=== PATIENT | female | born 1995 | race Caucasian/White ===

== ENCOUNTER 2024-08-10 07:36 | Inpatient (IN) ==
[2024-08-10] MEDS ORDERED: LIDOCAINE 1% LOCAL 20 ML VIAL INFIL PRN (08:16)
[2024-08-10] MEDS ORDERED: OXYTOCIN 30 UNITS/NSS 30 UNITS/500 ML BAG IV PRN (08:16)
--- NOTE | 2024-08-10 08:44 | History & Physical Report ---
Date of Service August 10, 2024 Assessment & Plan (1) 39 weeks gestation of : (2) Obesity affecting in third trimester: Plan admit for iol, pitocin to start, arom when indicated, epidural on demand, anticipate . Admission and Anticipated Discharge Date Admission Date: August 10, 2024 History of Present Illness Chief Complaint: elective iol Primary Care Provider: Naomie Ayers Patient is a 29yowf with iup at 39 2/7 weeks who present for elective iol. Had been breech in the office and scheduled for c/s today but converted and now desires iol. Notes the bulb fell out at about 6am. Notes some cramping and spotting. passed mucous. good fm and Delivery Plans Obesity (BMI 40 and higher @ beginning of )--47.4 *Growth US @ 32wks--> EFW 85% *Weekly NSTs @ 34wks *BMI 40 or greater offer detailed/level II anatomy at [facility]--done here and wnl *BMI 40 or above offer delivery by [facility]. *BMI 50 or greater scheduled detailed/level II anatomy at [facility] Pt carrier of Polycystic Kidney disease *FOB to be tested - Patent and partner aware and will have testing done when possible with schedule. ---has not been able to do yet Panorama insufficent DNA *pt desires genetic consult--patient setting up---did not do BREECH PRESENTATION------Vertex at 38wks C/S SCHEDULED FOR 08/10/[address] GONZALES AND DR. KO ASSIST OB Labs: Blood Type O Positive 01/07/24 Antibody Screen NEGATIVE 01/07/24 Hgb 11.0 g/dl (12.0-16.0) L 05/25/24 Hct 33.2 % (37.0-47.0) L 05/25/24 MCV 87.7 fL (80.0-100.0) 01/07/24 Plt Count 309 K/uL (130-400) 01/07/24 Rubella IgG Antibody Immune (Immune) 01/07/24 RPR Nonreactive (Nonreactive) 01/07/24 Hep Bs Antigen Negative (Negative) 04/20/24 Hep Bs Antigen NON-REACTIVE (NON-REACTIVE) 01/07/24 Hepatitis C Antibody Negative (Negative) 04/20/24 Hepatitis C Ab (EIA) NON-REACTIVE (NON-REACTIVE) 01/07/24 HIV (1&2) Ag & Ab Conf NON-REACTIVE (NON-REACTIVE) 01/07/24 Glucose 1 Hr 50 gm 129 mg/dl (70-130) 05/25/24 OB Optional Labs: Chlamydia trachomatis RNA Not Detected (NotDetected) 01/07/24 Neisseria gonorrhoeae RNA Not Detected (NotDetected) 01/07/24 Labs Reviewed: Horizon 14-positive PCKD; FOB to be tested--mln cfdna-insufficient dna; genetics consult--mln--never done. akh gbs neg Allergies Allergy/AdvReac Type Severity Reaction Status Date / Time No Known Allergies Allergy Verified 08/09/24 09:51 Home Medications Medication Instructions Recorded Confirmed Type prenat.vits,amol,xmh-tjks-suvyp 1 tab PO HS 12/30/23 08/10/24 History aspirin 81 mg tablet,delayed 81 mg PO HS 07/26/24 08/10/24 History release calcium carbonate (Tums) 300 mg PO QID PRN Acid Reflux 07/26/24 08/10/24 History Patient History Medical History Acid reflux History of COVID-19 12/2023, "mild" Surgical History [place] teeth extracted Family History Mother Hypertension Breast cancer Social History (Updated 08/10/24 @ 07:54 by Sheeba Ramos, JUANY) Smoking Status: Never smoker Second Hand Exposure: No; Do You Dip or Chew Tobacco: No; Hx Alcohol Use: No Hx Substance Use: No Preferred Language: Serbian Communication Ability: Effective 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
[2024-08-10] MEDS: OXYTOCIN 30 UNITS/NSS 30 UNITS/500 ML BAG IV PRN (08:51)
[2024-08-10] MEDS: LACTATED RINGER'S 1,000 ML IV PRN (08:51)
[2024-08-10 09:11] LABS: Hematocrit (blood only) 34.4 % (37.0-47.0); Hemoglobin 11.4 g/dl (12.0-16.0); Mean Corpuscular Hemoglobin 28.7 pg (25.0-34.0); Mean Corpuscular Hgb Conc 33.1 g/dL (32.0-36.0); Mean Corpuscular Volume 86.6 fL (80.0-100.0); Mean Platelet Volume 10.9 fL (9.4-12.4); Platelet Count 267 K/uL (130-400); RDW Coefficient of Variation 13.3 % (11.5-14.5); RDW Standard Deviation 41.9 fL (36.4-46.3); Red Blood Count 3.97 M/uL (4.20-5.40); White Blood Count 12.88 K/ul (4.8-10.8)
--- NOTE | 2024-08-10 16:52 | Anesthesiology Consultation ---
Date of Service August 10, 2024 Assessment & Plan Chart Review Chart Review: Patient NOT seen in Pre Admission Testing and Acceptable Risk for Labor Epidural Consults Requested none ASA ASA3 Proposed Anesthesia Anesthesia Type: Labor Epidural Risk / Benefits Reviewed With: PT / POA / Parent / Guardian, Accepts Plan and Informed Consent Obtained History Height/Weight Height: 5 ft 8 in Weight: 135.624 kg Allergies Allergy/AdvReac Type Severity Reaction Status Date / Time No Known Allergies Allergy Verified 08/09/24 09:51 Medications Home Medications Medication Instructions Recorded Confirmed Last Taken prenat.vits,amol,imy-esdj-xsgie 1 tab PO HS 12/30/23 08/10/24 08/09/24 aspirin 81 mg tablet,delayed 81 mg PO HS 07/26/24 08/10/24 08/09/24 release calcium carbonate (Tums) 300 mg PO QID PRN Acid Reflux 07/26/24 08/10/24 08/09/24 Active Medications Generic Name Dose Route Start Last Admin Trade Name Freq PRN Reason Stop Dose Admin Lactated Ringer's 1,000 mls @ 125 mls/hr 08/10/24 08:16 08/10/24 16:24 Lr IV 08/12/24 08:15 999 mls/hr .Q8H PRN Administration L&D Protocol Protocol Oxytocin 30 units in 500 mls @ 17 mls/hr 08/10/24 08:16 08/10/24 15:20 Pitocin 30 Units/Nss IV 08/12/24 08:15 1.02 units/hr .Q24H PRN 17 mls/hr Labor Induction/Augmentation Titration Protocol 1.02 UNITS/HR NPO Date Last Intake of Fluids: 08/10/24 Time Last Intake of Fluids: 16:00 Date Last Intake of Solids: 08/10/24 Time Last Intake of Solids: 06:30 Past Medical History Medical History Acid reflux History of COVID-19 12/2023, "mild" Exercise / Class Metabolic Activity 1 > 8 Run/Swim/Ski/Tennis Past Family History Family History Mother Hypertension Breast cancer Past Surgical History Surgical History [place] teeth extracted Past Anesthesia History No Hx of Anesthesia Complications and No Family Hx of Anesthesia Complications History of PONV No Hx of PONV and No Hx of Motion Sickness Social History Smoking Status: Never smoker Do You Dip or Chew Tobacco: No Hx Alcohol Use: No Hx Substance Use: No substance use type: does not use Review of Systems ROS Unobtainable: All systems reviewed & are unremarkable except as noted in HPI & below Physical Exam Vital Signs Last Vital Signs Temp 37.1 C 08/10/24 15:20 Pulse 92 H 08/10/24 16:48 Resp 20 08/10/24 15:20 BP 121/73 08/10/24 15:20 Pulse Ox 100 08/10/24 16:48 ENMT Mouth: no TMJ abnormality Thyromental Distance: > or= 3.5 Finger Breadths Mallampati Class: II Neck normal visual inspection and trachea midline; neck extension not limited Respiratory normal respiratory effort Auscultation: lungs clear to auscultation bilaterally Cardiovascular Rate/Rhythm: regular rate and regular rhythm Heart Sounds: no murmur Musculoskeletal Spine: normal cervical ROM Extremities: full ROM of extremities Neurologic moves all extremities Psychiatric Orientation: alert and oriented x 3 Testing Laboratory Results 08/10/24 08:51 Blood Type O Positive 08/10/24 08:51 Antibody Screen NEGATIVE 08/10/24 08:51
[2024-08-10] MEDS ORDERED: diphenhydrAMINE 50 MG/ML VIAL IV PRN (16:55)
[2024-08-10] MEDS ORDERED: NALOXONE HCL 1 MG in SODIUM CHLORIDE 0.9% 1,000 ML IV PRN (16:55)
[2024-08-10] MEDS ORDERED: fentaNYL citrate PF 100 MCG/2 ML VIAL EPI PRN (16:55)
[2024-08-10] MEDS ORDERED: ROPIVACAINE 0.5% PF 5 MG/ML 20 ML VIAL EPI PRN (16:55)
[2024-08-10] MEDS ORDERED: ePHEDrine sulfate 50 MG/ML AMP IV PRN (16:55)
[2024-08-10] MEDS ORDERED: LIDOCAINE 2% MPF LOCAL 5 ML VIAL EPI PRN (16:55)
[2024-08-10] MEDS ORDERED: NALBUPHINE HCL INJ 10 MG/ML AMP IV PRN (16:55)
[2024-08-10] MEDS ORDERED: BUPIVACAINE 0.25% PF 30 ML VIAL EPI PRN (16:55)
[2024-08-10] MEDS ORDERED: NALOXONE HCL 0.4 MG/1 ML VIAL/CARP IV PRN (16:55)
[2024-08-10] MEDS ORDERED: SODIUM CHLORIDE 0.9% PF INJ 10 ML VIAL EPI PRN (16:55)
[2024-08-10] MEDS: SODIUM CHLORIDE 0.9% PF INJ 10 ML VIAL ONE (17:12)
[2024-08-10] MEDS: fentANYL 2 MCG/ML BUPIVacaine 0.125%-NSS 100ML BAG ONE (17:12)
[2024-08-10] MEDS: LIDOCAINE 2%/EPINEPHRINE 1:200,000 20 ML PF ONE (17:12)
[2024-08-10] MEDS: BUPIVACAINE 0.25% PF 30 ML VIAL ONE (17:12)
[2024-08-10] MEDS: ePHEDrine sulfate 50 MG/ML AMP ONE (17:16)
[2024-08-10] MEDS: fentaNYL citrate PF 100 MCG/2 ML VIAL ONE (17:16)
[2024-08-10] MEDS: fentaNYL citrate PF 100 MCG/2 ML VIAL EPI STA (18:04)
[2024-08-10] MEDS: BUPIVACAINE 0.25% PF 30 ML VIAL EPI STA (18:04)
[2024-08-10] MEDS: LIDOCAINE 2%/EPINEPHRINE 1:200,000 20 ML PF EPI STA (18:04)
[2024-08-10] MEDS: SODIUM CHLORIDE 0.9% PF INJ 10 ML VIAL EPI STA (18:04)
--- NOTE | 2024-08-10 18:52 | Labor Progress Brief Note ---
Date of Service August 10, 2024 Subjective comfortable with epidural Assessment & Plan (1) 39 weeks gestation of : (2) Obesity affecting in third trimester: (3) Encounter for elective induction of labor: Plan Have been able to arom and place iupc. Cannot easily place fse as cx too anterior. fetus cetegory one. continue current management. Admission and Anticipated Discharge Date Admission Date: August 10, 2024 Physical Exam Physical Exam: continues to be a very difficult exam cervix is anterior , behind symphysis and curves anteriorly cx--4/75/-2 arom for copious clear fluid toco--q2-4, pit at 19 efm--140s with mod variability, accels present, no decels Results & Data Vital Signs (Past 12 Hours) Vital Signs Temp Pulse Resp BP Pulse Ox 08/10/24 18:43 90 100 08/10/24 18:38 92 H 97 08/10/24 18:33 78 100 08/10/24 18:32 98 H 20 118/59 L 08/10/24 18:28 91 H 100 08/10/24 18:23 85 100 08/10/24 18:18 95 H 100 08/10/24 18:17 80 126/64 08/10/24 18:13 98 H 100 08/10/24 18:08 82 100 08/10/24 18:03 82 100 08/10/24 17:59 86 20 108/67 08/10/24 17:58 79 99 08/10/24 17:53 100 08/10/24 17:53 99 H 08/10/24 17:53 100 H 111/63 08/10/24 17:48 83 113/61 100 08/10/24 17:46 91 H 91 08/10/24 17:43 93 H 103/64 100 08/10/24 17:40 96 H 92 08/10/24 17:38 100 08/10/24 17:38 98 H 08/10/24 17:38 82 100/58 L 08/10/24 17:33 100 08/10/24 17:33 109 H 08/10/24 17:33 102 H 99/56 L 08/10/24 17:31 101 H 20 102/60 08/10/24 17:30 100 H 79 L 08/10/24 17:29 103 H 105/66 08/10/24 17:28 95 H 100 08/10/24 17:27 98 H 18 132/72 08/10/24 17:25 97 H 116/64 08/10/24 17:23 100 08/10/24 17:23 99 H 08/10/24 17:23 93 H 18 115/67 08/10/24 17:21 92 H 113/68 08/10/24 17:19 90 18 110/65 08/10/24 17:18 99 H 100 08/10/24 17:17 91 H 18 107/60 08/10/24 17:15 105 H 16 109/66 08/10/24 17:13 100 08/10/24 17:13 91 H 08/10/24 17:13 101 H 16 128/71 08/10/24 17:11 102 H 129/72 08/10/24 17:08 94 H 100 08/10/24 17:06 93 H 18 126/74 08/10/24 17:03 100 08/10/24 17:03 106 H 08/10/24 17:03 100 H 18 143/79 H 08/10/24 16:58 98 H 100 08/10/24 16:53 111 H 99 08/10/24 16:50 92 H 144/71 H 08/10/24 16:48 92 H 100 08/10/24 16:43 91 H 100 08/10/24 16:38 87 100 08/10/24 15:20 37.1 C 88 20 121/73 08/10/24 14:35 95 H 122/72 08/10/24 13:47 20 08/10/24 13:47 20 08/10/24 13:47 90 20 123/69 08/10/24 12:19 93 H 20 117/72 08/10/24 11:04 80 115/75 08/10/24 11:00 20 08/10/24 11:00 37.0 C 20 08/10/24 10:16 83 20 125/74 08/10/24 09:32 93 H 20 112/66 08/10/24 08:52 100 H 130/71 08/10/24 08:07 117 H 115/76 08/10/24 07:56 37.0 C 20 Coding Level of Care Code None Diagnoses 39 weeks gestation of Z3A.39 Obesity affecting in third trimester O99.213 Encounter for elective induction of labor Z34.90
[2024-08-10] MEDS: CALCIUM CARBONATE 500 MG CHEWABLE TAB PO PRN (19:35)
[2024-08-10] MEDS: fentANYL 2 MCG/ML BUPIVacaine 0.125%-NSS 100ML BAG EPI PRN (23:42)
--- NOTE | 2024-08-11 02:42 | Labor Progress Brief Note ---
Date of Service August 11, 2024 Subjective comfortable Assessment & Plan (1) Encounter for elective induction of labor: Plan continue current management, finally adequate. fetus overall reassuring. Did discuss concern of not making alot of change, but only recently adequate. Admission and Anticipated Discharge Date Admission Date: August 10, 2024 Physical Exam Physical Exam: cx--5/80/-2 much easier to get to cervix this time toco--q2-3 min, pit at 30, finally adequate at 1 am efm--140s with mod variability, accels present, rare variable Results & Data Vital Signs (Past 12 Hours) Vital Signs Temp Pulse Resp BP Pulse Ox 08/11/24 02:33 95 H 99 08/11/24 02:32 86 119/58 L 08/11/24 02:28 87 99 08/11/24 02:23 88 98 08/11/24 02:18 89 98 08/11/24 02:13 86 97 08/11/24 02:08 92 H 98 08/11/24 02:03 90 132/79 97 08/11/24 01:58 93 H 99 08/11/24 01:56 86 93 08/11/24 01:53 85 96 08/11/24 01:48 88 96 08/11/24 01:47 88 104/56 L 08/11/24 01:43 86 97 08/11/24 01:38 87 96 08/11/24 01:34 82 98/55 L 08/11/24 01:33 84 97 08/11/24 01:28 90 96 08/11/24 01:23 84 97 08/11/24 01:18 87 106/58 L 97 08/11/24 01:13 84 97 08/11/24 01:08 82 97 08/11/24 01:03 18 08/11/24 01:03 36.9 C 18 08/11/24 01:03 99 08/11/24 01:03 96 H 08/11/24 01:03 88 133/68 08/11/24 00:58 84 95 08/11/24 00:53 82 95 08/11/24 00:48 82 96 08/11/24 00:47 90 112/64 94 08/11/24 00:43 90 95 08/11/24 00:41 85 94 08/11/24 00:38 82 95 08/11/24 00:35 84 94 08/11/24 00:33 96 08/11/24 00:33 79 08/11/24 00:33 79 110/65 08/11/24 00:28 79 96 08/11/24 00:23 78 96 08/11/24 00:18 84 100 08/11/24 00:17 84 118/74 08/11/24 00:13 77 96 08/11/24 00:08 88 100 08/11/24 00:03 76 97 08/11/24 00:02 80 118/66 08/10/24 23:58 79 97 08/10/24 23:53 81 98 08/10/24 23:48 98 08/10/24 23:48 81 08/10/24 23:48 90 148/67 H 08/10/24 23:43 82 97 08/10/24 23:38 84 98 08/10/24 23:33 88 98 08/10/24 23:32 79 118/61 08/10/24 23:28 88 97 08/10/24 23:23 91 H 97 08/10/24 23:18 97 08/10/24 23:18 90 08/10/24 23:18 83 118/60 08/10/24 23:13 87 96 08/10/24 23:08 89 96 08/10/24 23:03 93 H 96 08/10/24 23:02 82 113/56 L 08/10/24 23:00 18 08/10/24 23:00 36.9 C 18 08/10/24 22:58 88 97 08/10/24 22:53 83 98 08/10/24 22:48 86 97 08/10/24 22:47 86 115/55 L 08/10/24 22:43 87 97 08/10/24 22:38 86 97 08/10/24 22:33 83 98 08/10/24 22:32 88 123/62 08/10/24 22:28 82 97 08/10/24 22:23 79 100 08/10/24 22:21 82 93 08/10/24 22:18 99 08/10/24 22:18 87 08/10/24 22:18 89 108/59 L 08/10/24 22:13 90 100 08/10/24 22:08 87 100 08/10/24 22:03 91 H 100 08/10/24 22:02 82 119/72 08/10/24 21:58 83 99 08/10/24 21:53 86 100 08/10/24 21:48 90 100 08/10/24 21:43 92 H 100 08/10/24 21:38 84 100 08/10/24 21:36 94 H 91 08/10/24 21:33 80 100 08/10/24 21:32 78 124/71 08/10/24 21:28 81 100 08/10/24 21:23 83 100 08/10/24 21:18 85 99 08/10/24 21:17 88 129/71 08/10/24 21:13 84 100 08/10/24 21:08 84 97 08/10/24 21:03 37.1 C 88 18 122/72 100 08/10/24 20:58 84 99 08/10/24 20:53 84 100 08/10/24 20:49 82 118/73 08/10/24 20:48 81 100 08/10/24 20:43 84 100 08/10/24 20:38 81 100 08/10/24 20:33 84 100 08/10/24 20:32 90 130/79 08/10/24 20:28 82 100 08/10/24 20:23 82 100 08/10/24 20:18 84 99 08/10/24 20:17 82 113/70 08/10/24 20:13 84 100 08/10/24 20:08 95 H 100 08/10/24 20:03 90 118/74 100 08/10/24 19:58 91 H 99 08/10/24 19:53 83 100 08/10/24 19:48 79 100 08/10/24 19:47 86 112/63 08/10/24 19:43 83 100 08/10/24 19:42 96 H 94 08/10/24 19:38 82 100 08/10/24 19:33 87 115/65 99 08/10/24 19:28 92 H 100 08/10/24 19:23 96 H 100 08/10/24 19:18 97 H 130/72 100 08/10/24 19:13 96 H 100 08/10/24 19:08 96 H 100 08/10/24 19:03 84 100 08/10/24 19:02 36.9 C 96 H 18 118/59 L 08/10/24 18:58 87 100 08/10/24 18:53 93 H 100 08/10/24 18:48 88 116/58 L 100 08/10/24 18:43 90 100 08/10/24 18:38 92 H 97 08/10/24 18:33 78 100 08/10/24 18:32 98 H 20 118/59 L 08/10/24 18:28 91 H 100 08/10/24 18:23 85 100 08/10/24 18:18 95 H 100 08/10/24 18:17 80 126/64 08/10/24 18:13 98 H 100 08/10/24 18:08 82 100 08/10/24 18:03 82 100 08/10/24 17:59 86 20 108/67 08/10/24 17:58 79 99 08/10/24 17:53 100 08/10/24 17:53 99 H 08/10/24 17:53 100 H 111/63 08/10/24 17:48 83 113/61 100 08/10/24 17:46 91 H 91 08/10/24 17:43 93 H 103/64 100 08/10/24 17:40 96 H 92 08/10/24 17:38 100 08/10/24 17:38 98 H 08/10/24 17:38 82 100/58 L 08/10/24 17:33 100 08/10/24 17:33 109 H 08/10/24 17:33 102 H 99/56 L 08/10/24 17:31 101 H 20 102/60 08/10/24 17:30 100 H 79 L 08/10/24 17:29 103 H 105/66 08/10/24 17:28 95 H 100 08/10/24 17:27 98 H 18 132/72 08/10/24 17:25 97 H 116/64 08/10/24 17:23 100 08/10/24 17:23 99 H 08/10/24 17:23 93 H 18 115/67 08/10/24 17:21 92 H 113/68 08/10/24 17:19 90 18 110/65 08/10/24 17:18 99 H 100 08/10/24 17:17 91 H 18 107/60 08/10/24 17:15 105 H 16 109/66 08/10/24 17:13 100 08/10/24 17:13 91 H 08/10/24 17:13 101 H 16 128/71 08/10/24 17:11 102 H 129/72 08/10/24 17:08 94 H 100 08/10/24 17:06 93 H 18 126/74 08/10/24 17:03 100 08/10/24 17:03 106 H 08/10/24 17:03 100 H 18 143/79 H 08/10/24 16:58 98 H 100 08/10/24 16:53 111 H 99 08/10/24 16:50 92 H 144/71 H 08/10/24 16:48 92 H 100 08/10/24 16:43 91 H 100 08/10/24 16:38 87 100 08/10/24 15:20 37.1 C 88 20 121/73 Coding Level of Care Code None Diagnoses Encounter for elective induction of labor Z34.90
--- NOTE | 2024-08-11 07:42 | Labor Progress Brief Note ---
Date of Service August 11, 2024 Subjective comfortable Assessment & Plan (1) Encounter for elective induction of labor: (2) Failure of induction of labor by oxytocic drugs: Plan Discussed situation . Should have made cervical change by this time given adequate contractions. Options include continued trial of labor, half pit and try again, proceed with c/s. Patient desires to proceed with c/s. fetus reassuring. Admission and Anticipated Discharge Date Admission Date: August 10, 2024 Physical Exam Physical Exam: cx--unchanged toco--q2-3min, pit at 30, adequate since 1am efm--140s with mod variability, accels present, rare variable Results & Data Vital Signs (Past 12 Hours) Vital Signs Temp Pulse Resp BP Pulse Ox 08/11/24 07:33 92 H 100 08/11/24 07:30 95 H 149/84 H 08/11/24 07:28 96 H 100 08/11/24 07:23 90 100 08/11/24 07:18 89 100 08/11/24 07:15 89 142/77 H 08/11/24 07:13 85 97 08/11/24 07:08 86 98 08/11/24 07:03 90 99 08/11/24 07:01 93 H 92 08/11/24 07:00 36.8 C 85 20 134/83 100 08/11/24 06:58 98 H 99 08/11/24 06:53 95 H 96 08/11/24 06:48 80 96 08/11/24 06:47 84 138/78 08/11/24 06:46 83 94 08/11/24 06:43 81 96 08/11/24 06:38 78 97 08/11/24 06:33 80 95 08/11/24 06:32 78 127/74 08/11/24 06:28 88 94 08/11/24 06:27 81 94 08/11/24 06:23 77 95 08/11/24 06:22 80 94 08/11/24 06:18 77 127/76 97 08/11/24 06:13 79 96 08/11/24 06:08 86 98 08/11/24 06:03 80 97 08/11/24 06:02 85 126/70 08/11/24 05:58 74 97 08/11/24 05:53 75 97 08/11/24 05:48 99 H 100 08/11/24 05:47 84 134/76 08/11/24 05:43 86 99 08/11/24 05:40 85 92 08/11/24 05:38 87 97 08/11/24 05:33 97 08/11/24 05:33 82 08/11/24 05:33 83 124/63 08/11/24 05:28 82 98 08/11/24 05:23 81 97 08/11/24 05:18 80 117/64 97 08/11/24 05:13 87 95 08/11/24 05:08 97 H 96 08/11/24 05:03 94 H 99 08/11/24 05:02 37.2 C 99 H 18 117/61 08/11/24 04:58 85 98 08/11/24 04:53 85 97 08/11/24 04:48 86 96 08/11/24 04:47 86 117/56 L 08/11/24 04:45 91 H 93 08/11/24 04:43 88 95 08/11/24 04:38 89 96 08/11/24 04:33 84 96 08/11/24 04:32 82 122/58 L 08/11/24 04:28 82 96 08/11/24 04:23 92 H 96 08/11/24 04:18 96 08/11/24 04:18 83 08/11/24 04:18 85 130/57 L 08/11/24 04:13 92 H 98 08/11/24 04:08 86 96 08/11/24 04:03 86 97 08/11/24 04:02 81 115/68 08/11/24 04:00 18 08/11/24 04:00 18 08/11/24 03:58 92 H 97 08/11/24 03:53 83 97 08/11/24 03:48 84 96 08/11/24 03:47 83 142/77 H 08/11/24 03:43 82 97 08/11/24 03:38 89 100 08/11/24 03:33 95 H 136/75 100 08/11/24 03:30 18 08/11/24 03:30 18 08/11/24 03:28 93 H 98 08/11/24 03:23 91 H 97 08/11/24 03:19 89 129/72 08/11/24 03:18 89 98 08/11/24 03:13 93 H 98 08/11/24 03:08 91 H 98 08/11/24 03:03 91 H 98 08/11/24 03:02 96 H 134/73 08/11/24 03:00 18 08/11/24 03:00 37.0 C 18 08/11/24 02:58 91 H 97 08/11/24 02:53 86 97 08/11/24 02:48 85 99 08/11/24 02:47 88 129/76 08/11/24 02:43 86 99 08/11/24 02:38 120 H 100 08/11/24 02:33 95 H 99 08/11/24 02:32 86 119/58 L 08/11/24 02:28 87 99 08/11/24 02:23 88 98 08/11/24 02:18 89 98 08/11/24 02:13 86 97 08/11/24 02:08 92 H 98 08/11/24 02:03 90 132/79 97 08/11/24 01:58 93 H 99 08/11/24 01:56 86 93 08/11/24 01:53 85 96 08/11/24 01:48 88 96 08/11/24 01:47 88 104/56 L 08/11/24 01:43 86 97 08/11/24 01:38 87 96 08/11/24 01:34 82 98/55 L 08/11/24 01:33 84 97 08/11/24 01:28 90 96 08/11/24 01:23 84 97 08/11/24 01:18 87 106/58 L 97 08/11/24 01:13 84 97 08/11/24 01:08 82 97 08/11/24 01:03 18 08/11/24 01:03 36.9 C 18 08/11/24 01:03 99 08/11/24 01:03 96 H 08/11/24 01:03 88 133/68 08/11/24 00:58 84 95 08/11/24 00:53 82 95 08/11/24 00:48 82 96 08/11/24 00:47 90 112/64 94 08/11/24 00:43 90 95 08/11/24 00:41 85 94 08/11/24 00:38 82 95 08/11/24 00:35 84 94 08/11/24 00:33 96 08/11/24 00:33 79 08/11/24 00:33 79 110/65 08/11/24 00:28 79 96 08/11/24 00:23 78 96 08/11/24 00:18 84 100 08/11/24 00:17 84 118/74 08/11/24 00:13 77 96 08/11/24 00:08 88 100 08/11/24 00:03 76 97 08/11/24 00:02 80 118/66 08/10/24 23:58 79 97 08/10/24 23:53 81 98 08/10/24 23:48 98 08/10/24 23:48 81 08/10/24 23:48 90 148/67 H 08/10/24 23:43 82 97 08/10/24 23:38 84 98 08/10/24 23:33 88 98 08/10/24 23:32 79 118/61 08/10/24 23:28 88 97 08/10/24 23:23 91 H 97 08/10/24 23:18 97 08/10/24 23:18 90 08/10/24 23:18 83 118/60 08/10/24 23:13 87 96 08/10/24 23:08 89 96 08/10/24 23:03 93 H 96 08/10/24 23:02 82 113/56 L 08/10/24 23:00 18 08/10/24 23:00 36.9 C 18 08/10/24 22:58 88 97 08/10/24 22:53 83 98 08/10/24 22:48 86 97 08/10/24 22:47 86 115/55 L 08/10/24 22:43 87 97 08/10/24 22:38 86 97 08/10/24 22:33 83 98 08/10/24 22:32 88 123/62 08/10/24 22:28 82 97 08/10/24 22:23 79 100 08/10/24 22:21 82 93 08/10/24 22:18 99 08/10/24 22:18 87 08/10/24 22:18 89 108/59 L 08/10/24 22:13 90 100 08/10/24 22:08 87 100 08/10/24 22:03 91 H 100 08/10/24 22:02 82 119/72 08/10/24 21:58 83 99 08/10/24 21:53 86 100 08/10/24 21:48 90 100 08/10/24 21:43 92 H 100 08/10/24 21:38 84 100 08/10/24 21:36 94 H 91 08/10/24 21:33 80 100 08/10/24 21:32 78 124/71 08/10/24 21:28 81 100 08/10/24 21:23 83 100 08/10/24 21:18 85 99 08/10/24 21:17 88 129/71 08/10/24 21:13 84 100 08/10/24 21:08 84 97 08/10/24 21:03 37.1 C 88 18 122/72 100 08/10/24 20:58 84 99 08/10/24 20:53 84 100 08/10/24 20:49 82 118/73 08/10/24 20:48 81 100 08/10/24 20:43 84 100 08/10/24 20:38 81 100 08/10/24 20:33 84 100 08/10/24 20:32 90 130/79 08/10/24 20:28 82 100 08/10/24 20:23 82 100 08/10/24 20:18 84 99 08/10/24 20:17 82 113/70 08/10/24 20:13 84 100 08/10/24 20:08 95 H 100 08/10/24 20:03 90 118/74 100 08/10/24 19:58 91 H 99 08/10/24 19:53 83 100 08/10/24 19:48 79 100 08/10/24 19:47 86 112/63 08/10/24 19:43 83 100 08/10/24 19:42 96 H 94 08/10/24 19:38 82 100 Coding Level of Care Code None Diagnoses Encounter for elective induction of labor Z34.90 Failure of induction of labor by oxytocic drugs O61.0
[2024-08-11] MEDS ORDERED: AZITHROMYCIN 500 MG in DEXTROSE 5% 250 ML IV ONE (08:00)
[2024-08-11] MEDS ORDERED: LACTATED RINGER'S 1,000 ML IV SCH ×2 (08:00→09:00)
[2024-08-11] MEDS: ceFAZolin 3000MG 3,000 MG/72.5 ML BAG IV ONE (08:04)
[2024-08-11] MEDS: CITRIC ACID/SODIUM CITRATE 15 ML UDC PO SCH (08:04)
[2024-08-11] MEDS: ACETAMINOPHEN 500 MG TAB PO SCH (08:07)
[2024-08-11] MEDS ORDERED: ACETAMINOPHEN 1,000 MG/100 ML VIAL IV PRN (08:38)
[2024-08-11] MEDS ORDERED: MoRPHine SULFATE PF 1 MG/ML 10 ML AMP/VIAL EPI ONE (08:38)
[2024-08-11] MEDS ORDERED: PROMETHAZINE 6.25 MG/50.25 ML BAG IV PRN (08:38)
[2024-08-11] MEDS ORDERED: NALOXONE HCL 0.4 MG/1 ML VIAL/CARP IV PRN (08:38)
[2024-08-11] MEDS ORDERED: diphenhydrAMINE 50 MG/ML VIAL IV PRN (08:38)
[2024-08-11] MEDS ORDERED: LACTATED RINGER'S 500 ML IV PRN (08:38)
[2024-08-11] MEDS ORDERED: KETOROLAC 30 MG/ML VIAL IV PRN (08:38)
[2024-08-11] MEDS ORDERED: NALOXONE HCL 1 MG in SODIUM CHLORIDE 0.9% 1,000 ML IV PRN (08:38)
[2024-08-11] MEDS ORDERED: ONDANSETRON INJ 2 MG/ML 2 ML VIAL IV PRN ×2 (08:38→08:55)
[2024-08-11] MEDS ORDERED: NALOXONE HCL 0.08 MG in SYRINGE 1.8 ML IV PRN (08:38)
[2024-08-11] MEDS ORDERED: NALBUPHINE HCL INJ 10 MG/ML AMP IV PRN (08:38)
[2024-08-11] MEDS ORDERED: ePHEDrine sulfate 50 MG/ML AMP IV PRN (08:38)
[2024-08-11] MEDS ORDERED: HYDROmorphone INJ 0.5 MG/0.5 ML SYR IV PRN (08:38)
[2024-08-11] MEDS ORDERED: OXYTOCIN 10 UNITS/ML 10ML VIAL IM ONE (08:39)
[2024-08-11] MEDS ORDERED: DC INTRASPINAL MORPHINE SCH (08:45)
[2024-08-11] MEDS ORDERED: SODIUM CHLORIDE 0.9% 1,000 ML IV SCH (08:45)
[2024-08-11] MEDS ORDERED: NO NARCOTICS OR SEDATIVES SCH (08:45)
[2024-08-11] MEDS ORDERED: MAGNESIUM HYDROXIDE SUSP 30 ML UDC PO PRN (08:55)
[2024-08-11] MEDS ORDERED: HYDROCORTISONE ACETATE 25 MG SUPP PR PRN (08:55)
[2024-08-11] MEDS ORDERED: SENNA 8.6 MG TAB PO PRN (08:55)
[2024-08-11] MEDS ORDERED: PROMETHAZINE 12.5 MG/50.5 ML BAG IV PRN (08:55)
[2024-08-11] MEDS ORDERED: BENZOCAINE 20% SPRY 85 APPLN/85 GM CAN EXT PRN (08:55)
[2024-08-11] MEDS ORDERED: CALCIUM CARBONATE 500 MG CHEWABLE TAB PO PRN (08:55)
[2024-08-11 09:00] LABS: Base Excess Cord Venous Blood -1.8 mEq/L (-7.7-1.9); CO2 Cord Arterial Blood 58 mmHg (39.1-73.5); Cord Venous Blood HCO3 24 mmol/L (18.4-26.8); Cord Venous Blood PCO2 45 mmHg (30.4-57.2); Cord Venous Blood PO2 < 20 mmHg (14.1-43.3); Cord Venous Blood pH 7.34 (7.20-7.44); HCO3 Cord Arterial Blood 25 mmol/L (19.7-28.5); O2 Saturation Cord Venous Bld < 60.0 % (<68); Oxygen Sat Cord Arterial Blood < 60.0 % (<60); PO2 Cord Arterial Blood < 20 mmHg (4.1-31.7); pH Cord Arterial Blood 7.25 (7.1-7.38)
--- NOTE | 2024-08-11 09:15 | Operative Report ---
PG Post Operative Report Pre & Post Diagnosis Operation Date: 08/11/24 07:35 Pre-Op Diagnosis: Intrauterine at 39 weeks. Failure to progress Failed induction. Post-Op Diagnosis: Intrauterine at 39 weeks. Failure to progress Failed induction. Delivery of live male child at 0829. I identified the patient and participated in the time-out.: Yes Procedure Operation Date: 08/11/24 07:35 Actual Procedures p primary low transverse Section in LD, delivery of live male child at 0829 - Lani Carrillo MD, FACOG Surgeon Lani Carrillo MD, FACOG Binder Sorter DR. Stuart Estimated Blood Loss 568 (QBL) Findings Consistent with Post-Op Diagnosis viable male infant, apgars 6/9. nl uterus, tubes, ovs Fluids 1200cc ivf--200cc Specimens cord blood Drains patrick Anesthesia Type Labor Epidural Complications none Disposition Accompanied Patient To Recovery: Yes Disposition: Recovery Room Indications iup at 39 with elective iol and failure to induce/progress Description of Procedure The patient was taken to the operating room where she was identified verbally and by bracelet. She was moved to the operating table where her epidural was dosed by anesthesia. She was then placed in the supine position with a leftward tilt. A Patrick catheter was placed sterilely. the patient was prepped and draped in a normal standard fashion. the anesthetic was tested and found to be adequate. A time-out was held, identifying correct patient, procedure, positioning and preoperative antibiotics. There were no concerns. A Pfannenstiel skin incision was made with a knife and taken down to the underlying layer of fascia with the knife and Bovie electrocautery. Bleeding was attended to with the Bovie. The fascia was incised in the midline with the knife and taken out laterally with scissors. The superior edge of the fascial incision was grasped, elevated and the underlying layer of rectus muscle was taken off bluntly and with scissors. In a similar fashion, the inferior edge of the fascial incision was grasped, elevated and the underlying layer of rectus muscle was taken off bluntly and with scissors. The muscles were bluntly in the midline. The peritoneum was entered bluntly. The incision was then stretched. The bladder blade was placed. The vesicouterine peritoneum was identified, entered with scissors and taken out laterally with scissors. The bladder flap was created digitally A hysterotomy incision was scored with a knife and the incision was stretched superiorly and inferiorly with the shuttle operator's fingers. The operators hand was placed into the incision and the head was slow to delivery, tight fit. A vacuum was called for, applied and the head was then delivered with one pull. No nuchal cord. The nose and mouth were bulb suctioned. the rest of the was then delivered without difficulty. The nose and mouth were again bulb suctioned. The cord was clamped and cut and the was then handed off to the awaiting store clerk cashier for drying and attention. Cord blood and segment were obtained. The placenta was Manually extracted. The uterus was exteriorized and cleared of all clot and debris with moistened laparotomy sponges. The hysterotomy incision was repaired in two layers, the first in a running locked layer, the second in an imbricating layer. Hemostasis was noted to be good. Posterior cul-de-sac was irrigated and cleared of all clot and debris. The hysterotomy incision was again inspected and found to be hemostatic. the uterus was reinteriorized. Hysterotomy incision was again inspected and found to be hemostatic. The fascia was then reapproximated with 0 Vicryl starting at the edges and meeting in the midline. The sub-Q was then reapproximated with 2-0 plain gut. The skin was then closed with 4-0 Vicryl in a subcuticular fashion. A SAUL dressing was then applied. All sponge, lap and needle counts were correct x 2 and the patient was taken to recovery in stable condition. I attest to the content of the Intraoperative Record and any orders documented therein. Any exceptions are noted below. OB Procedure Charges 07705
--- NOTE | 2024-08-11 09:59 | Anesthesia Procedure Note ---
Date of Service August 11, 2024 Anesthesia Post Epidural Note Vital Signs Vital Signs: Temp Pulse Resp BP Pulse Ox O2 Del Method 97.9 F 75 20 116/67 100 Room Air 08/11/24 09:13 08/11/24 09:55 08/11/24 09:45 08/11/24 09:55 08/11/24 09:54 08/11/24 09:45 Notes Mental Status: alert / awake / arousable and participated in evaluation Nausea / Vomiting: adequately controlled Pain: adequately controlled Airway Patency, RR, SpO2: stable & adequate BP & HR: stable & adequate Hydration State: stable & adequate Neuraxial Anesthesia: was administered and sensory block is resolving Anesthetic Complications: no major complications apparent and Pt Satisfied with anesthetic care Epidural: Removed without complications and With tip intact
--- NOTE | 2024-08-11 10:00 | Anesthesiology Progress Note ---
Date of Service August 11, 2024 Anesthesia Post Procedure Vital Signs Vital Signs: Temp Pulse Pulse Resp BP BP Pulse Ox 08/11/24 09:58 84 90 08/11/24 09:55 75 116/67 08/11/24 09:54 82 100 08/11/24 09:52 80 112/56 L 08/11/24 09:49 81 100 08/11/24 09:45 79 20 127/61 100 08/11/24 09:45 80 127/61 08/11/24 09:44 81 100 08/11/24 09:41 77 112/57 L 08/11/24 09:39 74 100 08/11/24 09:35 77 20 100 08/11/24 09:34 74 100 08/11/24 09:29 72 100 08/11/24 09:27 77 20 110/60 100 08/11/24 09:27 75 111/60 08/11/24 09:24 79 99 08/11/24 09:19 72 100 08/11/24 09:14 78 100 08/11/24 09:13 97.9 F 77 20 110/56 L 100 08/11/24 09:13 77 110/56 L 08/11/24 08:03 108 H 100 08/11/24 08:00 109 H 144/92 H 08/11/24 07:58 99 H 100 08/11/24 07:53 101 H 100 08/11/24 07:49 100 H 137/86 08/11/24 07:48 103 H 100 08/11/24 07:43 95 H 100 08/11/24 07:38 91 H 100 08/11/24 07:33 92 H 100 08/11/24 07:30 95 H 149/84 H 08/11/24 07:28 96 H 100 08/11/24 07:23 90 100 08/11/24 07:18 89 100 08/11/24 07:15 89 142/77 H 08/11/24 07:13 85 97 08/11/24 07:08 86 98 08/11/24 07:03 90 99 08/11/24 07:01 93 H 92 08/11/24 07:00 98.2 F 85 20 134/83 100 08/11/24 06:58 98 H 99 08/11/24 06:53 95 H 96 08/11/24 06:48 80 96 08/11/24 06:47 84 138/78 08/11/24 06:46 83 94 08/11/24 06:43 81 96 08/11/24 06:38 78 97 08/11/24 06:33 80 95 08/11/24 06:32 78 127/74 08/11/24 06:28 88 94 08/11/24 06:27 81 94 08/11/24 06:23 77 95 08/11/24 06:22 80 94 08/11/24 06:18 77 127/76 97 08/11/24 06:13 79 96 08/11/24 06:08 86 98 08/11/24 06:03 80 97 08/11/24 06:02 85 126/70 08/11/24 05:58 74 97 08/11/24 05:53 75 97 08/11/24 05:48 99 H 100 08/11/24 05:47 84 134/76 08/11/24 05:43 86 99 08/11/24 05:40 85 92 08/11/24 05:38 87 97 08/11/24 05:33 97 08/11/24 05:33 82 08/11/24 05:33 83 124/63 08/11/24 05:28 82 98 08/11/24 05:23 81 97 08/11/24 05:18 80 117/64 97 08/11/24 05:13 87 95 08/11/24 05:08 97 H 96 08/11/24 05:03 94 H 99 08/11/24 05:02 99.0 F 99 H 18 117/61 08/11/24 04:58 85 98 08/11/24 04:53 85 97 08/11/24 04:48 86 96 08/11/24 04:47 86 117/56 L 08/11/24 04:45 91 H 93 08/11/24 04:43 88 95 08/11/24 04:38 89 96 08/11/24 04:33 84 96 08/11/24 04:32 82 122/58 L 08/11/24 04:28 82 96 08/11/24 04:23 92 H 96 08/11/24 04:18 96 08/11/24 04:18 83 08/11/24 04:18 85 130/57 L 08/11/24 04:13 92 H 98 08/11/24 04:08 86 96 08/11/24 04:03 86 97 08/11/24 04:02 81 115/68 08/11/24 04:00 18 08/11/24 04:00 18 08/11/24 03:58 92 H 97 08/11/24 03:53 83 97 08/11/24 03:48 84 96 08/11/24 03:47 83 142/77 H 08/11/24 03:43 82 97 08/11/24 03:38 89 100 08/11/24 03:33 95 H 136/75 100 08/11/24 03:30 18 08/11/24 03:30 18 08/11/24 03:28 93 H 98 08/11/24 03:23 91 H 97 08/11/24 03:19 89 129/72 08/11/24 03:18 89 98 08/11/24 03:13 93 H 98 08/11/24 03:08 91 H 98 08/11/24 03:03 91 H 98 08/11/24 03:02 96 H 134/73 08/11/24 03:00 18 08/11/24 03:00 98.6 F 18 08/11/24 02:58 91 H 97 08/11/24 02:53 86 97 08/11/24 02:48 85 99 08/11/24 02:47 88 129/76 08/11/24 02:43 86 99 08/11/24 02:38 120 H 100 08/11/24 02:33 95 H 99 08/11/24 02:32 86 119/58 L 08/11/24 02:28 87 99 08/11/24 02:23 88 98 08/11/24 02:18 89 98 08/11/24 02:13 86 97 08/11/24 02:08 92 H 98 08/11/24 02:03 90 132/79 97 08/11/24 01:58 93 H 99 08/11/24 01:56 86 93 08/11/24 01:53 85 96 08/11/24 01:48 88 96 08/11/24 01:47 88 104/56 L 08/11/24 01:43 86 97 08/11/24 01:38 87 96 08/11/24 01:34 82 98/55 L 08/11/24 01:33 84 97 08/11/24 01:28 90 96 08/11/24 01:23 84 97 08/11/24 01:18 87 106/58 L 97 08/11/24 01:13 84 97 08/11/24 01:08 82 97 08/11/24 01:03 18 08/11/24 01:03 98.4 F 18 08/11/24 01:03 99 08/11/24 01:03 96 H 08/11/24 01:03 88 133/68 08/11/24 00:58 84 95 08/11/24 00:53 82 95 08/11/24 00:48 82 96 08/11/24 00:47 90 112/64 94 08/11/24 00:43 90 95 08/11/24 00:41 85 94 08/11/24 00:38 82 95 08/11/24 00:35 84 94 08/11/24 00:33 96 08/11/24 00:33 79 08/11/24 00:33 79 110/65 08/11/24 00:28 79 96 08/11/24 00:23 78 96 08/11/24 00:18 84 100 08/11/24 00:17 84 118/74 08/11/24 00:13 77 96 08/11/24 00:08 88 100 08/11/24 00:03 76 97 08/11/24 00:02 80 118/66 08/10/24 23:58 79 97 08/10/24 23:53 81 98 08/10/24 23:48 98 08/10/24 23:48 81 08/10/24 23:48 90 148/67 H 08/10/24 23:43 82 97 08/10/24 23:38 84 98 08/10/24 23:33 88 98 08/10/24 23:32 79 118/61 08/10/24 23:28 88 97 08/10/24 23:23 91 H 97 08/10/24 23:18 97 08/10/24 23:18 90 08/10/24 23:18 83 118/60 08/10/24 23:13 87 96 08/10/24 23:08 89 96 08/10/24 23:03 93 H 96 08/10/24 23:02 82 113/56 L 08/10/24 23:00 18 08/10/24 23:00 98.4 F 18 08/10/24 22:58 88 97 08/10/24 22:53 83 98 08/10/24 22:48 86 97 08/10/24 22:47 86 115/55 L 08/10/24 22:43 87 97 08/10/24 22:38 86 97 08/10/24 22:33 83 98 08/10/24 22:32 88 123/62 08/10/24 22:28 82 97 08/10/24 22:23 79 100 08/10/24 22:21 82 93 08/10/24 22:18 99 08/10/24 22:18 87 08/10/24 22:18 89 108/59 L 08/10/24 22:13 90 100 08/10/24 22:08 87 100 08/10/24 22:03 91 H 100 08/10/24 22:02 82 119/72 08/10/24 21:58 83 99 08/10/24 21:53 86 100 08/10/24 21:48 90 100 08/10/24 21:43 92 H 100 08/10/24 21:38 84 100 08/10/24 21:36 94 H 91 08/10/24 21:33 80 100 08/10/24 21:32 78 124/71 08/10/24 21:28 81 100 08/10/24 21:23 83 100 08/10/24 21:18 85 99 08/10/24 21:17 88 129/71 08/10/24 21:13 84 100 08/10/24 21:08 84 97 08/10/24 21:03 98.8 F 88 18 122/72 100 08/10/24 20:58 84 99 08/10/24 20:53 84 100 08/10/24 20:49 82 118/73 08/10/24 20:48 81 100 08/10/24 20:43 84 100 08/10/24 20:38 81 100 08/10/24 20:33 84 100 08/10/24 20:32 90 130/79 08/10/24 20:28 82 100 08/10/24 20:23 82 100 08/10/24 20:18 84 99 08/10/24 20:17 82 113/70 08/10/24 20:13 84 100 08/10/24 20:08 95 H 100 08/10/24 20:03 90 118/74 100 08/10/24 19:58 91 H 99 08/10/24 19:53 83 100 08/10/24 19:48 79 100 08/10/24 19:47 86 112/63 08/10/24 19:43 83 100 08/10/24 19:42 96 H 94 08/10/24 19:38 82 100 08/10/24 19:33 87 115/65 99 08/10/24 19:28 92 H 100 08/10/24 19:23 96 H 100 08/10/24 19:18 97 H 130/72 100 08/10/24 19:13 96 H 100 08/10/24 19:08 96 H 100 08/10/24 19:03 84 100 08/10/24 19:02 98.4 F 96 H 18 118/59 L 08/10/24 18:58 87 100 08/10/24 18:53 93 H 100 08/10/24 18:48 88 116/58 L 100 08/10/24 18:43 90 100 08/10/24 18:38 92 H 97 08/10/24 18:33 78 100 08/10/24 18:32 98 H 20 118/59 L 08/10/24 18:28 91 H 100 08/10/24 18:23 85 100 08/10/24 18:18 95 H 100 08/10/24 18:17 80 126/64 08/10/24 18:13 98 H 100 08/10/24 18:08 82 100 08/10/24 18:03 82 100 08/10/24 17:59 86 20 108/67 08/10/24 17:58 79 99 08/10/24 17:53 100 08/10/24 17:53 99 H 08/10/24 17:53 100 H 111/63 08/10/24 17:48 83 113/61 100 08/10/24 17:46 91 H 91 08/10/24 17:43 93 H 103/64 100 08/10/24 17:40 96 H 92 08/10/24 17:38 100 08/10/24 17:38 98 H 08/10/24 17:38 82 100/58 L 08/10/24 17:33 100 08/10/24 17:33 109 H 08/10/24 17:33 102 H 99/56 L 08/10/24 17:31 101 H 20 102/60 08/10/24 17:30 100 H 79 L 08/10/24 17:29 103 H 105/66 08/10/24 17:28 95 H 100 08/10/24 17:27 98 H 18 132/72 08/10/24 17:25 97 H 116/64 08/10/24 17:23 100 08/10/24 17:23 99 H 08/10/24 17:23 93 H 18 115/67 08/10/24 17:21 92 H 113/68 08/10/24 17:19 90 18 110/65 08/10/24 17:18 99 H 100 08/10/24 17:17 91 H 18 107/60 08/10/24 17:15 105 H 16 109/66 08/10/24 17:13 100 08/10/24 17:13 91 H 08/10/24 17:13 101 H 16 128/71 08/10/24 17:11 102 H 129/72 08/10/24 17:08 94 H 100 08/10/24 17:06 93 H 18 126/74 08/10/24 17:03 100 08/10/24 17:03 106 H 08/10/24 17:03 100 H 18 143/79 H 08/10/24 16:58 98 H 100 08/10/24 16:53 111 H 99 08/10/24 16:50 92 H 144/71 H 08/10/24 16:48 92 H 100 08/10/24 16:43 91 H 100 08/10/24 16:38 87 100 08/10/24 15:20 98.8 F 88 20 121/73 08/10/24 14:35 95 H 122/72 08/10/24 13:47 20 08/10/24 13:47 20 08/10/24 13:47 90 20 123/69 08/10/24 12:19 93 H 20 117/72 08/10/24 11:04 80 115/75 08/10/24 11:00 20 08/10/24 11:00 98.6 F 20 08/10/24 10:16 83 20 125/74 O2 Del Method 08/11/24 09:58 08/11/24 09:55 08/11/24 09:54 08/11/24 09:52 08/11/24 09:49 08/11/24 09:45 Room Air 08/11/24 09:45 08/11/24 09:44 08/11/24 09:41 08/11/24 09:39 08/11/24 09:35 Room Air 08/11/24 09:34 08/11/24 09:29 08/11/24 09:27 Room Air 08/11/24 09:27 08/11/24 09:24 08/11/24 09:19 08/11/24 09:14 08/11/24 09:13 Room Air 08/11/24 09:13 08/11/24 08:03 08/11/24 08:00 08/11/24 07:58 08/11/24 07:53 08/11/24 07:49 08/11/24 07:48 08/11/24 07:43 08/11/24 07:38 08/11/24 07:33 08/11/24 07:30 08/11/24 07:28 08/11/24 07:23 08/11/24 07:18 08/11/24 07:15 08/11/24 07:13 08/11/24 07:08 08/11/24 07:03 08/11/24 07:01 08/11/24 07:00 08/11/24 06:58 08/11/24 06:53 08/11/24 06:48 08/11/24 06:47 08/11/24 06:46 08/11/24 06:43 08/11/24 06:38 08/11/24 06:33 08/11/24 06:32 08/11/24 06:28 08/11/24 06:27 08/11/24 06:23 08/11/24 06:22 08/11/24 06:18 08/11/24 06:13 08/11/24 06:08 08/11/24 06:03 08/11/24 06:02 08/11/24 05:58 08/11/24 05:53 08/11/24 05:48 08/11/24 05:47 08/11/24 05:43 08/11/24 05:40 08/11/24 05:38 08/11/24 05:33 08/11/24 05:33 08/11/24 05:33 08/11/24 05:28 08/11/24 05:23 08/11/24 05:18 08/11/24 05:13 08/11/24 05:08 08/11/24 05:03 08/11/24 05:02 08/11/24 04:58 08/11/24 04:53 08/11/24 04:48 08/11/24 04:47 08/11/24 04:45 08/11/24 04:43 08/11/24 04:38 08/11/24 04:33 08/11/24 04:32 08/11/24 04:28 08/11/24 04:23 08/11/24 04:18 08/11/24 04:18 08/11/24 04:18 08/11/24 04:13 08/11/24 04:08 08/11/24 04:03 08/11/24 04:02 08/11/24 04:00 08/11/24 04:00 08/11/24 03:58 08/11/24 03:53 08/11/24 03:48 08/11/24 03:47 08/11/24 03:43 08/11/24 03:38 08/11/24 03:33 08/11/24 03:30 08/11/24 03:30 08/11/24 03:28 08/11/24 03:23 08/11/24 03:19 08/11/24 03:18 08/11/24 03:13 08/11/24 03:08 08/11/24 03:03 08/11/24 03:02 08/11/24 03:00 08/11/24 03:00 08/11/24 02:58 08/11/24 02:53 08/11/24 02:48 08/11/24 02:47 08/11/24 02:43 08/11/24 02:38 08/11/24 02:33 08/11/24 02:32 08/11/24 02:28 08/11/24 02:23 08/11/24 02:18 08/11/24 02:13 08/11/24 02:08 08/11/24 02:03 08/11/24 01:58 08/11/24 01:56 08/11/24 01:53 08/11/24 01:48 08/11/24 01:47 08/11/24 01:43 08/11/24 01:38 08/11/24 01:34 08/11/24 01:33 08/11/24 01:28 08/11/24 01:23 08/11/24 01:18 08/11/24 01:13 08/11/24 01:08 08/11/24 01:03 08/11/24 01:03 08/11/24 01:03 08/11/24 01:03 08/11/24 01:03 08/11/24 00:58 08/11/24 00:53 08/11/24 00:48 08/11/24 00:47 08/11/24 00:43 08/11/24 00:41 08/11/24 00:38 08/11/24 00:35 08/11/24 00:33 08/11/24 00:33 08/11/24 00:33 08/11/24 00:28 08/11/24 00:23 08/11/24 00:18 08/11/24 00:17 08/11/24 00:13 08/11/24 00:08 08/11/24 00:03 08/11/24 00:02 08/10/24 23:58 08/10/24 23:53 08/10/24 23:48 08/10/24 23:48 08/10/24 23:48 08/10/24 23:43 08/10/24 23:38 08/10/24 23:33 08/10/24 23:32 08/10/24 23:28 08/10/24 23:23 08/10/24 23:18 08/10/24 23:18 08/10/24 23:18 08/10/24 23:13 08/10/24 23:08 08/10/24 23:03 08/10/24 23:02 08/10/24 23:00 08/10/24 23:00 08/10/24 22:58 08/10/24 22:53 08/10/24 22:48 08/10/24 22:47 08/10/24 22:43 08/10/24 22:38 08/10/24 22:33 08/10/24 22:32 08/10/24 22:28 08/10/24 22:23 08/10/24 22:21 08/10/24 22:18 08/10/24 22:18 08/10/24 22:18 08/10/24 22:13 08/10/24 22:08 08/10/24 22:03 08/10/24 22:02 08/10/24 21:58 08/10/24 21:53 08/10/24 21:48 08/10/24 21:43 08/10/24 21:38 08/10/24 21:36 08/10/24 21:33 08/10/24 21:32 08/10/24 21:28 08/10/24 21:23 08/10/24 21:18 08/10/24 21:17 08/10/24 21:13 08/10/24 21:08 08/10/24 21:03 08/10/24 20:58 08/10/24 20:53 08/10/24 20:49 08/10/24 20:48 08/10/24 20:43 08/10/24 20:38 08/10/24 20:33 08/10/24 20:32 08/10/24 20:28 08/10/24 20:23 08/10/24 20:18 08/10/24 20:17 08/10/24 20:13 08/10/24 20:08 08/10/24 20:03 08/10/24 19:58 08/10/24 19:53 08/10/24 19:48 08/10/24 19:47 08/10/24 19:43 08/10/24 19:42 08/10/24 19:38 08/10/24 19:33 08/10/24 19:28 08/10/24 19:23 08/10/24 19:18 08/10/24 19:13 08/10/24 19:08 08/10/24 19:03 08/10/24 19:02 08/10/24 18:58 08/10/24 18:53 08/10/24 18:48 08/10/24 18:43 08/10/24 18:38 08/10/24 18:33 08/10/24 18:32 08/10/24 18:28 08/10/24 18:23 08/10/24 18:18 08/10/24 18:17 08/10/24 18:13 08/10/24 18:08 08/10/24 18:03 08/10/24 17:59 08/10/24 17:58 08/10/24 17:53 08/10/24 17:53 08/10/24 17:53 08/10/24 17:48 08/10/24 17:46 08/10/24 17:43 08/10/24 17:40 08/10/24 17:38 08/10/24 17:38 08/10/24 17:38 08/10/24 17:33 08/10/24 17:33 08/10/24 17:33 08/10/24 17:31 08/10/24 17:30 08/10/24 17:29 08/10/24 17:28 08/10/24 17:27 08/10/24 17:25 08/10/24 17:23 08/10/24 17:23 08/10/24 17:23 08/10/24 17:21 08/10/24 17:19 08/10/24 17:18 08/10/24 17:17 08/10/24 17:15 08/10/24 17:13 08/10/24 17:13 08/10/24 17:13 08/10/24 17:11 08/10/24 17:08 08/10/24 17:06 08/10/24 17:03 08/10/24 17:03 08/10/24 17:03 08/10/24 16:58 08/10/24 16:53 08/10/24 16:50 08/10/24 16:48 08/10/24 16:43 08/10/24 16:38 08/10/24 15:20 08/10/24 14:35 08/10/24 13:47 08/10/24 13:47 08/10/24 13:47 08/10/24 12:19 08/10/24 11:04 08/10/24 11:00 08/10/24 11:00 08/10/24 10:16 Transfer of Care Handoff Completed per policy Notes Mental Status: alert / awake / arousable and participated in evaluation Patient Amnestic to Procedure: Yes Nausea / Vomiting: adequately controlled Pain: adequately controlled Airway Patency, RR, SpO2: stable & adequate BP & HR: stable & adequate Hydration State: stable & adequate Neuraxial Anesthesia: was administered and sensory block is resolving Anesthetic Complications: no major complications apparent and Pt Satisfied with anesthetic care
[2024-08-11] MEDS: IBUPROFEN 600 MG TAB PO SCH (12:19)
[2024-08-11] MEDS ORDERED: SODIUM CHLORIDE 0.9% 250 ML IV PRN (13:06)
[2024-08-11] MEDS: ACETAMINOPHEN 325 MG TAB PO SCH (14:04)
[2024-08-11] MEDS: SIMETHICONE 80 MG CHEW PO SCH (14:04)
[2024-08-11] MEDS: KETOROLAC 30 MG/ML VIAL IV SCH (14:05)
[2024-08-11] MEDS: OXYTOCIN 20 UNITS/LR 1,002 ML IV SCH (14:43)
[2024-08-11] MEDS: DIPHTHER/TETAN/PERTUS Vaccine (Tdap, Adol/Adult) 0.5mL IM ONE (15:22)
[2024-08-11] MEDS: DOCUSATE SODIUM 100 MG CAP PO SCH (20:10)
[2024-08-12] MEDS ORDERED: diphenhydrAMINE 50 MG/ML VIAL IV PRN (02:39)
[2024-08-12] MEDS ORDERED: oxyCODONE HCL IR 5 MG TAB (IMMEDIATE RELEASE) PO PRN (02:39)
[2024-08-12] MEDS ORDERED: diphenhydrAMINE Capsule 25 MG CAP PO PRN (02:39)
[2024-08-12] MEDS ORDERED: HYDROmorphone INJ 0.5 MG/0.5 ML SYR IV PRN (02:39)
[2024-08-12 06:46] LABS: Basophils # (auto) 0.03 K/uL (0.00-0.20); Basophils % (auto) 0.3 %; Eosinophils # (auto) 0.06 K/uL (0.00-0.50); Eosinophils % (auto) 0.6 %; Hematocrit (blood only) 30.3 % (37.0-47.0); Hemoglobin 9.9 g/dl (12.0-16.0); Immature Granulocytes # (auto) 0.06 K/uL (0.01-0.20); Immature Granulocytes % (auto) 0.6 %; Lymphocytes # (auto) 1.81 K/uL (1.20-3.40); Lymphocytes % (auto) 16.9 %; Mean Corpuscular Hemoglobin 28.4 pg (25.0-34.0); Mean Corpuscular Hgb Conc 32.7 g/dL (32.0-36.0); Mean Corpuscular Volume 87.1 fL (80.0-100.0); Mean Platelet Volume 10.9 fL (9.4-12.4); Monocytes # (auto) 0.82 K/uL (0.11-0.59); Monocytes % (auto) 7.7 %; Neutrophils # (auto) 7.91 K/uL (1.40-6.50); Neutrophils % (auto) 73.9 %; Platelet Count 203 K/uL (130-400); RDW Coefficient of Variation 13.2 % (11.5-14.5); RDW Standard Deviation 41.9 fL (36.4-46.3); Red Blood Count 3.48 M/uL (4.20-5.40); White Blood Count 10.69 K/ul (4.8-10.8)
--- NOTE | 2024-08-12 06:56 | Obstetrical Progress Note ---
Date of Service August 12, 2024 Assessment & Plan (1) Encounter for assessment: Plan: Patient is POD 1 s/p LTCS and doing well - Eating well, voiding well, ambulating well - vitals reviewed and within normal limits - pain well controlled with analgesics - OOB, ambulation, diet progression as tolerated - Blood type: O+, GBS neg, rubella immune - Plan to discharge tomorrow - After discharge, 6 week follow up with OB Admission and Anticipated Discharge Date Admission Date: August 10, 2024 Supervising Physician Co-Signing Physician Notes Resident Physician Supervision Note: I interviewed and examined the patient. Discussed with Dr. Nails and agree with findings and plan as documented in the note. Any exceptions or clarifications are listed here: [None] Documented By: Yina Vogel MD, FACOG Subjective 29 yo post-operative day 1 s/p lower transverse Ambulation: ambulating normally Voiding: no voiding problems Passing Gas:: Yes Diet Tolerance:: regular diet Lochia:: Small Feeding Type:: breast feeding Current Pain Level:2-3/10 Resting comfortably this AM in NAD. Denies ESPAÑA, CP, SOB, N/V/D, LE pain/swelling. Physical Exam Physical Exam: General: patient resting comfortably, NAD, non-toxic in appearance, answers questions appropriately. Skin: warm, dry, intact HEENT: NC/AT, anicteric sclera, conjunctiva without injection, moist mucus membranes. Heart: +S1/S2, regular, no m/r/g Lungs: equal air entry bilaterally, no rales/rhonchi/wheezes Abd: +BS, soft, NT/ND, uterine fundus firm at umbilicus Ext: warm, no clubbing/cyanosis or edema, Kell's neg. Neuro: nonfocal, speech intact, no facial droop, moving all extremities. Results & Data Vital Signs (Past 12 Hours) Vital Signs Temp Pulse Resp BP Pulse Ox O2 Del Method 08/12/24 03:26 36.5 C 80 16 105/74 Room Air 08/12/24 02:10 16 97 08/12/24 01:00 14 95 08/12/24 00:00 16 95 08/12/24 00:00 36.5 C 88 16 121/77 95 Room Air 08/11/24 23:10 14 94 08/11/24 22:00 16 93 08/11/24 21:10 18 94 08/11/24 20:10 36.7 C 85 16 128/86 99 Room Air 08/11/24 20:10 16 99 08/11/24 19:00 18 95 Resident Activity Tracking Resident Involvement: Resident Care Provided Care Provided: OB Delivery (1) Encounter for assessment visit type: exam and care immediately after delivery Qualified Code(s): Z39.0 - Encounter for care and examination of mother immediately after delivery
[2024-08-12 07:58] VITALS: O2SAT 100
[2024-08-12] MEDS: PRENATAL VITAMIN 1 TAB PO SCH (08:05)
[2024-08-12] MEDS: FERROUS SULFATE 325 MG TAB PO SCH (08:08)
[2024-08-12] MEDS: bisacodyL 5 MG TABEC PO SCH (20:05)
[2024-08-13 07:05] LABS: Hematocrit (blood only) 27.6 % (37.0-47.0); Hemoglobin 9.4 g/dl (12.0-16.0)
[2024-08-13 08:47] VITALS: BP 119/81; RESP 18; TEMP 98.1
[2024-08-13] MEDS ORDERED: bisacodyL 10 MG SUPP PR PRN (08:55)
--- NOTE | 2024-08-13 09:11 | Obstetrical Progress Note ---
Date of Service August 13, 2024 Assessment & Plan (1) Encounter for assessment: POD#2 doing well. Incision covered with SAUL - will do 1w removal in office for this . Desires DC home. Declines Rx for narcotics. Reviewed instructions, will follow up in office 6w. visit type: exam and care immediately after delivery Qualified Code(s): Z39.0 - Encounter for care and examination of mother immediately after delivery Subjective Ambulation: ambulating normally Voiding: no voiding problems Diet Tolerance:: regular diet Lochia:: Moderate Review of Systems All systems reviewed & are unremarkable except as noted in HPI & below Physical Exam Constitutional WD/WN, vitals as above no acute distress Respiratory normal respiratory effort Cardiovascular Rate/Rhythm: regular rate and regular rhythm Gastrointestinal (Abdomen) Inspection/Auscultation: abdomen normal to inspection; abdomen not distended Percussion/Palpation: abdomen soft Genitourinary OB Exam Abdomen: + fundal height Fundus: + firm; not tender Results & Data Vital Signs (Past 12 Hours) Vital Signs Temp Pulse Resp BP O2 Del Method 08/13/24 07:45 36.7 C 81 18 119/81 Room Air 08/13/24 00:20 36.4 C L 78 14 137/86 Room Air
[2024-08-13 09:39] VITALS: PULSE 86
[2024-08-13] MEDS ORDERED: IBUPROFEN 600 MG TAB PO PRN (13:55)
[2024-08-13] MEDS ORDERED: ACETAMINOPHEN 325 MG TAB PO PRN (13:55)
--- NOTE | 2024-08-15 09:04 | Discharge Summary ---
Date of Service August 15, 2024 Admission HPI Per Admitting Provider Patient is a 29yowf with iup at 39 2/7 weeks who present for elective iol. Had been breech in the office and scheduled for c/s today but converted and now desires iol. Notes the bulb fell out at about 6am. Notes some cramping and spotting. passed mucous. good fm and Delivery Plans Obesity (BMI 40 and higher @ beginning of )--47.4 *Growth US @ 32wks--> EFW 85% *Weekly NSTs @ 34wks *BMI 40 or greater offer detailed/level II anatomy at [facility]--done here and wnl *BMI 40 or above offer delivery by [facility]. *BMI 50 or greater scheduled detailed/level II anatomy at [facility] Pt carrier of Polycystic Kidney disease *FOB to be tested - Patent and partner aware and will have testing done when possible with schedule. ---has not been able to do yet Panorama insufficent DNA *pt desires genetic consult--patient setting up---did not do BREECH PRESENTATION------Vertex at 38wks C/S SCHEDULED FOR 08/10/[address] GONZALES AND DR. KO ASSIST OB Labs: Blood Type O Positive 01/07/24 Antibody Screen NEGATIVE 01/07/24 Hgb 11.0 g/dl (12.0-16.0) L 05/25/24 Hct 33.2 % (37.0-47.0) L 05/25/24 MCV 87.7 fL (80.0-100.0) 01/07/24 Plt Count 309 K/uL (130-400) 01/07/24 Rubella IgG Antibody Immune (Immune) 01/07/24 RPR Nonreactive (Nonreactive) 01/07/24 Hep Bs Antigen Negative (Negative) 04/20/24 Hep Bs Antigen NON-REACTIVE (NON-REACTIVE) 01/07/24 Hepatitis C Antibody Negative (Negative) 04/20/24 Hepatitis C Ab (EIA) NON-REACTIVE (NON-REACTIVE) 01/07/24 HIV (1&2) Ag & Ab Conf NON-REACTIVE (NON-REACTIVE) 01/07/24 Glucose 1 Hr 50 gm 129 mg/dl (70-130) 05/25/24 OB Optional Labs: Chlamydia trachomatis RNA Not Detected (NotDetected) 01/07/24 Neisseria gonorrhoeae RNA Not Detected (NotDetected) 01/07/24 Labs Reviewed: Horizon 14-positive PCKD; FOB to be tested--mln cfdna-insufficient dna; genetics consult--mln--never done. [facility] gbs neg Discharge Data Consultations 08/10/24 08:16 Consult Anesthesiology Stat Procedures Performed Operation Date: 08/11/24 07:35 Actual Procedures p Section in LD, delivery of live male child at 0829 - Lani Gonzales MD, [facility] Course (1) Failure of induction of labor by oxytocic drugs: (2) 39 weeks gestation of : (3) Obesity affecting in third trimester: Plan Pateint had converted to vertex. Vertex presentation reconfirmed by ultrasound. She had received a patrick bulb and then pitocin. Patient had an unusual cervix position being very anterior and curved. She eventually had arom and IUPC placed as difficult to trace contractions. Patient was 4cm at that time. There was copious amounts of clear fluid noted throughout labor. She eventually had an adequate contraction pattern by IUPC when reaching 30 mu of pitocin. She unfortunately made no foreign exchange clerk about 8 hours. Discussed pros/cons of co ntinued attempts at labor but patient decided to proceed wtih c/s. The patient underwent a primary low transverse c/s without complications . qbl 568cc. Her postoperative course was uncomplicated--tolerated a regular diet, tolerated po pain medications, voided after removal of her Patrick, ambulated without difficulty. She was d/c home on pod 2. her d/c h/h was 9.4/27.6. She had a SAUL dressing in place. She will return in 5 days for dressing removal. Instructions reviewed. Coding Level of Care Code None Diagnoses Failure of induction of labor by oxytocic drugs O61.0 39 weeks gestation of Z3A.39 Obesity affecting in third trimester O99.213
== END 2024-08-13 11:55 | disposition home or self-care (01) | DRG 788 ==
LOC: 4S1 07:36 → 4E2 08-11 11:30
DX: O62.2 Other uterine inertia; O61.0 Failed medical induction of labor; O99.214 Obesity complicating childbirth; Z14.8 Genetic carrier of other disease; Z37.0 Single live birth; Z3A.39 39 weeks gestation of pregnancy